=== PATIENT | male | born 2000 | race Caucasian/White ===

== ENCOUNTER 2022-01-07 19:51 | Emergency (ER) | payer SELFPAY ==
[~2022-01-07] VITALS: Ht 185.4 cm; Wt 79.9 kg
[2022-01-07] MEDS ORDERED: LITH300C PO (20:24)
[2022-01-07] MEDS ORDERED: ZYPR10TA PO (20:24)
[2022-01-07] MEDS ORDERED: CLON0.12 PO (20:24)
[2022-01-07 21:13] LABS: HEMATOCRIT 43.3 % (42.0-52.0); HEMOGLOBIN 15.5 g/dl (13.5-17.5); MEAN CORPUSCULAR HEMOGLOBIN 29.8 pg (27.0-33.0); MEAN CORPUSCULAR HGB CONC 35.8 g/dl (32.0-36.5); MEAN CORPUSCULAR VOLUME 83.3 fl (80.0-96.0); PLATELET COUNT, AUTOMATED 231 10^3/uL (150-450); WHITE BLOOD COUNT 6.8 10^3/uL (4.0-10.0)
[2022-01-07 21:39] LABS: AMPHETAMINES LEVEL URINE NEGATIVE (NEGATIVE); BARBITURATES URINE NEGATIVE (NEGATIVE); BENZODIAZEPINES URINE NEGATIVE (NEGATIVE); CANNABINOIDS URINE NEGATIVE (NEGATIVE); COCAINE METABOLITE URINE NEGATIVE (NEGATIVE); METHADONE URINE NEGATIVE (NEGATIVE); OPIATES URINE NEGATIVE (NEGATIVE); PHENCYCLIDINE URINE NEGATIVE (NEGATIVE)
[2022-01-07 22:02] LABS: ACETAMINOPHEN LEVEL < 2.0 UG/ML (10.0-30.0); ALBUMIN 4.1 GM/DL (3.2-5.2); ALT/SGPT 34 U/L (12-78); BILIRUBIN,DIRECT < 0.1 MG/DL (0.0-0.2); BILIRUBIN,TOTAL 0.4 MG/DL (0.2-1.0); BLOOD UREA NITROGEN 16 MG/DL (7-18); CALCIUM LEVEL 9.5 MG/DL (8.5-10.1); CARBON DIOXIDE LEVEL 28 MEQ/L (21-32); CHLORIDE LEVEL 108 MEQ/L (98-107); CREATININE FOR GFR 1.04 MG/DL (0.70-1.30); ETHYL ALCOHOL (ETHANOL) < 0.003 % (0.000-0.010); GLOMERULAR FILTRATION RATE > 60.0 (>60); GLUCOSE, FASTING 89 MG/DL (70-100); LITHIUM LEVEL < 0.20 MEQ/L (0.60-1.20); SALICYLATE LEVEL 2.3 MG/DL (5.0-30.0); SODIUM LEVEL 143 MEQ/L (136-145); THYROID STIMULATING HORMONE 0.452 uIU/ML (0.358-3.740); TOTAL PROTEIN 7.6 GM/DL (6.4-8.2)
[2022-01-07 22:08] LABS: RSV AMPLIFICATION NEGATIVE (NEGATIVE)
[2022-01-07] MEDS ORDERED: CLON1TAB8 PO (23:22)
[2022-01-07] MEDS ORDERED: CLONPOW23 (23:23)
[2022-01-07] MEDS ORDERED: HOME MED LIST COMPLETE! XX SCH (23:25)
[2022-01-08] MEDS ORDERED: HYDR-3363 PO (00:17)
[2022-01-08 00:34] VITALS: BP 134/68
== END 2022-01-08 00:38 | disposition home or self-care (01) ==
LOC: M ED 19:51
DX: F41.1 Generalized anxiety disorder (principal); F17.210 Nicotine dependence, cigarettes, uncomplicated